=== PATIENT | female | born 1955 | race Caucasian/White ===

== ENCOUNTER 2021-05-25 04:34 | Day surgery (SDC) | payer OTHER ==
[2021-05-24 12:01] VITALS: BMI 21.2
[2021-05-25] MEDS ORDERED: ceFAZolin SODIUM 1 GM VIAL IVPB ONE ×2 (11:09→14:00)
[2021-05-25] MEDS ORDERED: ACETAMINOPHEN 325 MG TABLET (FP) PO PRN (13:07)
[2021-05-25] MEDS ORDERED: ONDANSETRON 4 MG/2 ML VIAL IVPUSH PRN (13:07)
[2021-05-25] MEDS ORDERED: oxyCODONE HCL 5 MG TABLET PO PRN (13:07)
[2021-05-25] MEDS ORDERED: PROPOFOL 20 ML ONE ×2 (13:12)
[2021-05-25] MEDS ORDERED: MIDAZOLAM HCL 2 MG/2 ML SINGLE DOSE VIAL ONE (13:12)
[2021-05-25] MEDS ORDERED: LACTATED RINGERS SOLUTION 1,000 ML IV SCH (13:15)
[2021-05-25] MEDS ORDERED: LIDOCAINE HCL/PF 2% SDV 5ML VIAL ONE (13:45)
[2021-05-25] MEDS ORDERED: DEXAMETHASONE SOD PHOSPHATE 4 MG/1 ML VIAL ONE (13:45)
[2021-05-25] MEDS ORDERED: KETOROLAC TROMETHAMINE 30 MG/1 ML VIAL ONE (14:01)
[2021-05-25] MEDS ORDERED: ceFAZolin SODIUM 1 GM VIAL ONE (14:04)
[2021-05-25 17:34] VITALS: BP 134/73; PULSE 78; TEMP 97.9
== END 2021-05-25 17:50 | disposition home or self-care (01) ==
LOC: JASU-SURG 04:34
PROVIDERS: ATTEND Urology
PROC: 0TC68ZZ Extirpation of Matter from Right Ureter, Via Natural or Artificial Opening Endoscopic (ICD-10-PCS; principal; 2021-05-25 14:00)
PROC: 0T768DZ Dilation of Right Ureter with Intraluminal Device, Via Natural or Artificial Opening Endoscopic (ICD-10-PCS; 2021-05-25 14:00)
DX: N20.1 Calculus of ureter (principal)
CPT/HCPCS: 76000-TC-FY; 94760

== ENCOUNTER 2022-01-31 04:03 | Day surgery (SDC) | payer OTHER ==
[2022-01-12 09:47] VITALS: BMI 21.0
[2022-01-31] MEDS ORDERED: PROPOFOL 20 ML ONE (14:40)
[2022-01-31] MEDS ORDERED: KETOROLAC TROMETHAMINE 30 MG/1 ML VIAL ONE (14:41)
[2022-01-31] MEDS ORDERED: ceFAZolin SODIUM 1 GM VIAL ONE (14:41)
[2022-01-31 15:28] VITALS: RESP 18
[2022-01-31 16:09] VITALS: BP 140/71; PULSE 68; TEMP 97.3
== END 2022-01-31 16:27 | disposition home or self-care (01) ==
LOC: JASU-SURG 04:03
PROVIDERS: ATTEND Urology
PROC: 0TF3XZZ Fragmentation in Right Kidney Pelvis, External Approach (ICD-10-PCS; principal; 2022-01-31 13:45)
DX: N20.0 Calculus of kidney (principal)

== ENCOUNTER 2023-06-05 04:14 | Day surgery (SDC) | payer OTHER ==
[2023-05-31 10:21] VITALS: BMI 21.7
[2023-06-05] MEDS ORDERED: ONDANSETRON 4 MG/2 ML VIAL ONE (12:13)
[2023-06-05] MEDS ORDERED: DEXAMETHASONE SOD PHOSPHATE 4 MG/1 ML VIAL ONE (12:13)
[2023-06-05] MEDS ORDERED: PROPOFOL 20 ML ONE (12:13)
[2023-06-05] MEDS ORDERED: MIDAZOLAM HCL 2 MG/2 ML SINGLE DOSE VIAL ONE (12:14)
[2023-06-05] MEDS ORDERED: ceFAZolin SODIUM 1 GM VIAL IVPB ONE (12:33)
[2023-06-05] MEDS ORDERED: ONDANSETRON 4 MG/2 ML VIAL IVPUSH PRN ×2 (13:27→16:48)
[2023-06-05] MEDS ORDERED: oxyCODONE HCL 5 MG TABLET PO PRN ×3 (13:27→16:48)
[2023-06-05] MEDS ORDERED: LACTATED RINGERS SOLUTION 1,000 ML IV SCH ×2 (13:30→17:00)
[2023-06-05 15:44] VITALS: RESP 18
[2023-06-05 16:28] VITALS: BP 149/72; PULSE 60; TEMP 97.7
[2023-06-05] MEDS ORDERED: PROMETHAZINE HCL 25 MG/1 ML VIAL IVPB PRN (16:48)
== END 2023-06-05 16:30 | disposition home or self-care (01) ==
LOC: JASU-SURG 04:14
PROVIDERS: ATTEND Urology
PROC: 0TC08ZZ Extirpation of Matter from Right Kidney, Via Natural or Artificial Opening Endoscopic (ICD-10-PCS; principal; 2023-06-05 12:00)
PROC: 0T768DZ Dilation of Right Ureter with Intraluminal Device, Via Natural or Artificial Opening Endoscopic (ICD-10-PCS; 2023-06-05 12:00)
PROC: BT1DYZZ Fluoroscopy of Right Kidney, Ureter and Bladder using Other Contrast (ICD-10-PCS; 2023-06-05 12:00)
DX: N20.0 Calculus of kidney (principal)
CPT/HCPCS: 76000-TC-FY; 94760; C1758; C2617

== ENCOUNTER 2024-07-31 06:38 | Day surgery (SDC) | payer OTHER ==
[2024-07-28 15:27] VITALS: BMI 21.7
[2024-07-31] MEDS ORDERED: MIDAZOLAM HCL 2 MG/2 ML SINGLE DOSE VIAL ONE ×2 (13:07→13:25)
[2024-07-31] MEDS: ceFAZolin 2 GRAM PREMIX BAG IVPB ONE (13:08)
[2024-07-31 15:49] VITALS: RESP 18
[2024-07-31 15:55] VITALS: BP 139/72; PULSE 66; TEMP 97.6
== END 2024-07-31 15:25 | disposition home or self-care (01) ==
LOC: JASU-SURG 06:38
PROVIDERS: ATTEND Urology
PROC: 0TF3XZZ Fragmentation in Right Kidney Pelvis, External Approach (ICD-10-PCS; principal; 2024-07-31 11:00)
DX: N20.0 Calculus of kidney (principal)